=== PATIENT | female | born 1995 | race Caucasian/White ===

== ENCOUNTER 2023-08-11 21:57 | Day surgery (SDC) | payer BC ==
[2023-08-11] MEDS ORDERED: hydrALAZINE 20 MG/ML VIAL SLOW IVP PRN (22:18)
[2023-08-11 23:20] LABS: ALT (SGPT) 13 U/L (8-55); AST (SGOT) 14 U/L (5-34); Albumin 3.2 g/dL (3.5-5.0); Alkaline Phosphatase 65 U/L (40-110); Anion Gap 11 mmol/L (10-20); BUN (Urea Nitrogen) 5 mg/dL (7.0-18.7); Bilirubin, Total 0.2 mg/dL (0.2-1.2); Calc. Creatinine Clearance 0 mL/min (70-130); Calcium 8.8 mg/dL (7.8-10.44); Carbon Dioxide 25 mmol/L (22-29); Chloride 106 mmol/L (98-107); Estimated GFR 128; Globulin 2.5 g/dL (2.4-3.5); Glucose 98 mg/dL (70-105); Potassium 3.3 mmol/L (3.5-5.1); Protein, Total 5.7 g/dL (6.0-8.3); Sodium 139 mmol/L (136-145)
[2023-08-11 23:24] LABS: #Eosinphils 0.1 10x3/uL (0.0-0.5); #Monocytes 0.7 10x3/uL (0.0-1.1); #Neutrophils 5.1 10x3/uL (1.5-8.4); %Basophils 0.3 % (0.0-2.0); %Eosinophils 0.8 % (0.0-6.0); %Neutrophils 67.4 % (40.0-75.0); Hematocrit 31.8 % (34.9-44.5); Hemoglobin 10.4 g/dL (12.0-15.5); Mean Corpuscular HGB CONC 32.7 g/dL (32.0-36.0); Mean Corpuscular Hemoglobin 28.3 pg (27.0-33.0); Mean Corpuscular Volume 86.6 fl (81.6-98.3); Mean Platelet Volume 11.4 fl (7.4-10.4); Platelet Count 232 10x3/uL (150-450); RBC Distribution Width 14.1 % (11.5-14.5); Red Blood Cell (RBC) Count 3.67 10x6/uL (3.90-5.03); White Blood Cell (WBC) Count 7.6 10x3/uL (3.5-10.5)
[2023-08-11 23:31] VITALS: BMI 50.8
== END 2023-08-12 01:00 | disposition home or self-care (01) ==
LOC: CSHLD/OP 21:57
PROVIDERS: ATTEND Obstetrics & Gynecology
DX: O10.913 Unspecified pre-existing hypertension complicating pregnancy, third trimester (principal); O99.343 Other mental disorders complicating pregnancy, third trimester; F41.9 Anxiety disorder, unspecified; F32.A Depression, unspecified; O99.213 Obesity complicating pregnancy, third trimester; E66.01 Morbid (severe) obesity due to excess calories; Z3A.34 34 weeks gestation of pregnancy
CPT/HCPCS: 36415; 76819; 80053; 82570; 84156; 85025

== ENCOUNTER 2023-09-01 00:02 | Inpatient (IN) | payer BC ==
[2023-09-01 01:53] VITALS: BMI 53.2
[2023-09-01] MEDS ORDERED: HYDROcodone/Acetaminophen 5/325 mg Tablet PO PRN ×2 (01:53)
[2023-09-01] MEDS ORDERED: Ondansetron PF 4 MG/2 ML Vial IVP PRN (01:53)
[2023-09-01] MEDS ORDERED: Promethazine HCl 25 MG/ML VIAL IM PRN (01:53)
[2023-09-01] MEDS ORDERED: Acetaminophen 500 MG TAB PO PRN (01:53)
[2023-09-01] MEDS ORDERED: Ibuprofen 800 MG TAB PO PRN (01:53)
[2023-09-01] MEDS ORDERED: Carboprost 250 MCG/ML AMP IM PRN (01:53)
[2023-09-01] MEDS ORDERED: fentaNYL 50 mcg/mL 1 mL Vial SLOW IVP PRN (01:53)
[2023-09-01] MEDS ORDERED: hydrALAZINE 20 MG/ML VIAL SLOW IVP PRN (01:53)
[2023-09-01] MEDS ORDERED: Misoprostol 200 MCG TAB PR PRN (01:53)
[2023-09-01] MEDS ORDERED: Diphenoxylate HCl/Atropine Tablet PO PRN ×2 (01:53)
[2023-09-01] MEDS ORDERED: Lidocaine 1% (PF) 30 ML VIAL SC PRN (01:53)
[2023-09-01] MEDS ORDERED: Tranexamic Acid 1,000 MG/10 ML VIAL IVP PRN (01:53)
[2023-09-01] MEDS ORDERED: Oxytocin 30 units/NS 500 ML 500 ML IV SCH ×2 (02:00)
[2023-09-01] MEDS ORDERED: Lactated Ringer's 1,000 ML IV SCH (02:00)
[2023-09-01 02:07] LABS: Hematocrit 32.9 % (34.9-44.5); Mean Corpuscular HGB CONC 33.4 g/dL (32.0-36.0); Mean Corpuscular Hemoglobin 28.8 pg (27.0-33.0); Mean Corpuscular Volume 86.1 fl (81.6-98.3); Mean Platelet Volume 11.8 fl (7.4-10.4); Platelet Count 209 10x3/uL (150-450); RBC Distribution Width 14.2 % (11.5-14.5); Red Blood Cell (RBC) Count 3.82 10x6/uL (3.90-5.03); White Blood Cell (WBC) Count 8.1 10x3/uL (3.5-10.5)
[2023-09-01 02:16] LABS: ALT (SGPT) 11 U/L (8-55); AST (SGOT) 16 U/L (5-34); Albumin 3.3 g/dL (3.5-5.0); Alkaline Phosphatase 78 U/L (40-110); Anion Gap 15 mmol/L (10-20); BUN (Urea Nitrogen) 5 mg/dL (7.0-18.7); Bilirubin, Total 0.2 mg/dL (0.2-1.2); Calc. Creatinine Clearance 384 mL/min (70-130); Calcium 8.6 mg/dL (7.8-10.44); Carbon Dioxide 19 mmol/L (22-29); Chloride 107 mmol/L (98-107); Estimated GFR 130; Globulin 2.4 g/dL (2.4-3.5); Glucose 96 mg/dL (70-105); Potassium 3.9 mmol/L (3.5-5.1); Protein, Total 5.7 g/dL (6.0-8.3); Sodium 137 mmol/L (136-145)
[2023-09-01 02:34] LABS: Syphilis Antibody Nonreactive (Nonreactive); Syphilis Antibody Index 0.07 S/CO (<1.00 Non-Reactive)
[2023-09-01 02:35] LABS: HBSAg Index 0.13 S/CO (0-0.99); Hep B Surf Ag - L&D Non-Reactive S/CO (NonReactive)
[2023-09-01] MEDS ORDERED: Dextrose 5%-Lactated Ringers 1,000 ML IV SCH (04:00)
[2023-09-01] MEDS: Misoprostol 100 MCG TAB VAG SCH ×3 (07:18→16:53)
[2023-09-02] MEDS: Misoprostol 100 MCG TAB VAG SCH ×3 (07:20→19:49)
[2023-09-02] MEDS ORDERED: Bicitra 30 ML UDCUP PO PRN (13:15)
[2023-09-02] MEDS ORDERED: Famotidine/PF 20 mg/2ml Vial SLOW IVP PRN (13:15)
[2023-09-02] MEDS ORDERED: CEFAZOLIN 2 GM in Sodium Chloride 0.9% 100 ML IVPB SCH (14:00)
[2023-09-02] MEDS ORDERED: fentaNYL 50 mcg/mL 1 mL Vial ONE (15:27)
[2023-09-02] MEDS ORDERED: Morphine PF 10 MG/10 ML VIAL ONE (15:27)
[2023-09-02] MEDS ORDERED: Ketorolac Tromethamine 30 MG/ML VIAL ONE (15:28)
[2023-09-02] MEDS ORDERED: Oxytocin 10 UNITS/ML VIAL ONE (15:28)
[2023-09-02] MEDS ORDERED: Ondansetron PF 4 MG/2 ML Vial ONE (15:28)
[2023-09-02] MEDS ORDERED: Sodium Bicarbonate 2.5 MEQ/5 ML VIAL ONE (15:28)
[2023-09-02] MEDS ORDERED: Dexamethasone 4 mg/ml Vial ONE (15:28)
[2023-09-02] MEDS ORDERED: Meperidine HCl/PF 25 MG/ML VIAL SLOW IVP PRN (17:05)
[2023-09-02] MEDS ORDERED: Moisturizing Cream (Eucerin) 113 GM JAR TOP PRN (17:05)
[2023-09-02] MEDS ORDERED: Promethazine HCl 25 MG/ML VIAL IM PRN (17:05)
[2023-09-02] MEDS ORDERED: Promethazine HCl 25 MG SUPP PR PRN (17:05)
[2023-09-02] MEDS ORDERED: Ondansetron PF 4 MG/2 ML Vial IVP PRN ×3 (17:05→18:51)
[2023-09-02] MEDS ORDERED: fentaNYL 50 mcg/mL 1 mL Vial SLOW IVP PRN (17:05)
[2023-09-02] MEDS ORDERED: Naloxone HCl 0.4 mg/ml Vial IV PRN (17:05)
[2023-09-02] MEDS ORDERED: diphenhydrAMINE 50 MG/ML VIAL IVP PRN (17:05)
[2023-09-02] MEDS ORDERED: Naloxone HCl 0.4 mg/ml Vial IVP PRN ×2 (17:05)
[2023-09-02] MEDS ORDERED: Communication Order-Pharmacy FS SCH (17:15)
[2023-09-02] MEDS ORDERED: Ketorolac Tromethamine 30 MG/ML VIAL IVP SCH (17:15)
[2023-09-02] MEDS ORDERED: Boostrix 0.5 ML (Tdap) VIAL (>/=7 yrs of age) IM ONE (18:51)
[2023-09-02] MEDS ORDERED: hydrALAZINE 20 MG/ML VIAL SLOW IVP PRN (18:51)
[2023-09-02] MEDS ORDERED: Bisacodyl 10 MG SUPP PR PRN (18:51)
[2023-09-02] MEDS ORDERED: Zolpidem Tartrate 5 MG TAB PO PRN (18:51)
[2023-09-02] MEDS ORDERED: diphenhydrAMINE 25 MG CAP PO PRN (18:51)
[2023-09-02] MEDS ORDERED: Lanolin Ointment 7 GM TUBE TOP PRN (18:51)
[2023-09-02] MEDS: Docusate 100 MG CAP PO SCH (21:16)
[2023-09-02] MEDS: Ketorolac Tromethamine 30 MG/ML VIAL IVP PRN (22:50)
[2023-09-03 04:28] LABS: Hematocrit 29.5 % (34.9-44.5); Hemoglobin 9.7 g/dL (12.0-15.5); Mean Corpuscular HGB CONC 32.9 g/dL (32.0-36.0); Mean Corpuscular Hemoglobin 28.6 pg (27.0-33.0); Mean Platelet Volume 11.7 fl (7.4-10.4); Platelet Count 216 10x3/uL (150-450); Red Blood Cell (RBC) Count 3.39 10x6/uL (3.90-5.03); White Blood Cell (WBC) Count 12.3 10x3/uL (3.5-10.5)
[2023-09-03] MEDS: HYDROcodone/Acetaminophen 5/325 mg Tablet PO PRN ×5 (04:41→21:40)
[2023-09-03] MEDS: Ketorolac Tromethamine 30 MG/ML VIAL IVP PRN ×2 (04:42→14:53)
[2023-09-03] MEDS: Simethicone Chewable 80 MG TAB PO PRN ×2 (08:58→17:34)
[2023-09-03] MEDS: Docusate 100 MG CAP PO SCH ×2 (08:58→21:36)
[2023-09-03] MEDS: Prenatal Vitamin 1 TAB PO SCH (08:58)
[2023-09-03] MEDS ORDERED: METOPROLOL 25 MG PO SCH (09:00)
[2023-09-03] MEDS: Ibuprofen 800 MG TAB PO SCH (21:36)
[2023-09-04] MEDS: HYDROcodone/Acetaminophen 5/325 mg Tablet PO PRN ×4 (02:43→14:04)
[2023-09-04] MEDS: Ibuprofen 800 MG TAB PO SCH ×2 (05:31→14:03)
[2023-09-04] MEDS: Prenatal Vitamin 1 TAB PO SCH (09:02)
[2023-09-04] MEDS: Docusate 100 MG CAP PO SCH (09:02)
[2023-09-04] MEDS: Simethicone Chewable 80 MG TAB PO PRN (09:02)
[2023-09-04 10:54] VITALS: BP 128/65; TEMP 98.6
== END 2023-09-04 15:50 | disposition home or self-care (01) | DRG 788 ==
LOC: CSHLD 00:02 → CSHPP 09-02 19:00
PROVIDERS: ADMIT Obstetrics & Gynecology; ATTEND Obstetrics & Gynecology
PROC: 10D00Z1 Extraction of Products of Conception, Low, Open Approach (ICD-10-PCS; principal; 2023-09-02)
PROC: 3E0P7VZ Introduction of Hormone into Female Reproductive, Via Natural or Artificial Opening (ICD-10-PCS; 2023-09-02)
DX: O99.214 Obesity complicating childbirth (principal); O10.92 Unspecified pre-existing hypertension complicating childbirth; Z3A.37 37 weeks gestation of pregnancy; Z37.0 Single live birth
CPT/HCPCS: 36415; 51702; 80053; 82570; 85027; 86780; 86850; 86900; 86901; 87340; J1100; J1885; J2274; J2405; J2590; J3010; S0028